=== PATIENT | male | born 1935 | race Caucasian/White ===

== ENCOUNTER → 2019-03-21 | Outpatient (CLI) | payer MEDICARE, OTHER ==
[~2019-03-21] MED LIST: ASCO500 PO; ASPI81CH PO; COREG PO; DOXA2 PO; EYE VITAMIN-MI1 EACH PO; FINA5 PO; Lisinopril2.5 MG PO; SIMV40 PO
== END ==
LOC: LAB SHORT 08:40 → PLD 08:40
DX: D04.72 Carcinoma in situ of skin of left lower limb, including hip (principal); D03.39 Melanoma in situ of other parts of face
CPT/HCPCS: 88305

== ENCOUNTER → 2019-04-18 | Outpatient (CLI) | payer MEDICARE, OTHER | END | disposition home or self-care (01) | LOC: PLD 14:23 → LAB SHORT 14:23 | DX: D03.39 Melanoma in situ of other parts of face (principal) | CPT/HCPCS: 88305 ==

== ENCOUNTER → 2019-06-06 | Outpatient (CLI) | payer MEDICARE, OTHER | END | disposition home or self-care (01) | LOC: PLD 15:09 → LAB SHORT 15:09 | DX: L57.8 Other skin changes due to chronic exposure to nonionizing radiation (principal) | CPT/HCPCS: 88305 ==

== ENCOUNTER → 2020-03-28 | Outpatient (CLI) | payer MEDICARE, OTHER | END | disposition home or self-care (01) | LOC: PLD 13:49 → LAB SHORT 13:49 | DX: B35.1 Tinea unguium (principal); L60.1 Onycholysis | CPT/HCPCS: 88305; 88312 ==

== ENCOUNTER → 2022-02-27 | Outpatient (CLI) | payer MEDICARE, OTHER | END | disposition home or self-care (01) | LOC: LAB SHORT 07:53 → PLD 07:53 | DX: L60.2 Onychogryphosis (principal); B35.1 Tinea unguium | CPT/HCPCS: 88305; 88312 ==

== ENCOUNTER → 2022-06-24 | Outpatient (CLI) | payer OTHER | END | disposition home or self-care (01) | LOC: LAB SHORT 12:39 → PLD 12:39 | DX: D48.5 Neoplasm of uncertain behavior of skin (principal) | CPT/HCPCS: 88305 ==

== ENCOUNTER 2024-03-10 14:59 | Inpatient (IN) | payer OTHER ==
[~2024-03-10] VITALS: Ht 177.8 cm; Wt 69.0 kg
[~2024-03-10 14:59] MED LIST changes: -COREG PO; +COREG12.5 M1 PO; +DOCU100 PO
[2024-03-10 15:37] LABS: BASOPHILS ABSOLUTE AUTO 0.03 K/mm3 (0.00-0.23); BASOPHILS PERCENT AUTO 1 % (0-2); EOSINOPHILS ABSOLUTE AUTO 0.17 K/mm3 (0.00-0.68); EOSINOPHILS PERCENT AUTO 3 % (0-6); Hemoglobin 9.9 g/dL (13.5-17.5); IMMATURE GRAN ABSOLUTE AUTO 0.01 K/mm3 (0.00-0.10); IMMATURE GRAN PERCENT AUTO 0 % (0-1); LYMPHOCYTES ABSOLUTE AUTO 0.93 K/mm3 (0.84-5.20); LYMPHOCYTES PERCENT AUTO 14 % (21-46); MONOCYTES ABSOLUTE AUTO 1.38 K/mm3 (0.16-1.47); MONOCYTES PERCENT AUTO 21 % (4-13); Mean Corpuscular Volume 97 fL (80-100); Mean Platelet Volume 11.5 fL (9.1-12.4); NEUTROPHILS ABSOLUTE AUTO 4.01 K/mm3 (1.96-9.15); NEUTROPHILS PERCENT AUTO 61 % (41-73); Platelet Count 104 K/mm3 (150-400); RDW Coefficient Variation 12.8 % (11.7-14.2); RDW Standard Deviation 45.8 fL (35.1-46.3); Red Blood Cell Count 3.09 M/mm3 (4.30-5.90); White Blood Cell Count 6.53 K/mm3 (4.00-11.30)
[2024-03-10 15:51] LABS: International Normalized Ratio 1.16; Prothrombin Time Results 12.3 Sec (9.7-11.5)
[2024-03-10 15:59] LABS: Albumin, Blood 3.2 g/dL (3.4-5.0); Albumin/Globulin Ratio 1.2 (0.8-1.8); Bilirubin, Total 0.7 mg/dL (0.1-1.0); Bun/Creatinine Ratio 20.9 (12.0-20.0); Calcium, Blood 8.7 mg/dL (8.5-10.1); Creatinine, Blood 0.91 mg/dL (0.60-1.20); Globulin, Blood 2.7 g/dL (2.2-4.0); Magnesium, Blood 2.2 mg/dL (1.6-2.4); Potassium, Blood 4.5 mmol/L (3.5-5.5); Total Protein, Blood 5.9 g/dL (6.4-8.2)
[2024-03-10 16:55] LABS: Influenza A, PCR NEGATIVE (NEGATIVE); Influenza B, PCR NEGATIVE (NEGATIVE); Resp Syncytial Virus, PCR NEGATIVE (NEGATIVE); SARS-Cov-2 (COVID-19) PCR, MMC NEGATIVE (NEGATIVE)
[2024-03-10] MEDS ORDERED: NS 1,000 ML IV SCH (17:40)
[2024-03-10] MEDS ORDERED: Metoprolol Tartrate 1 MG/ML 5 ML VIAL IV PRN (17:40)
[2024-03-10] MEDS ORDERED: FLU VACC TS2024-25(6MOS UP)/PF 45 MCG/0.5 ML SYRINGE IM SCH (17:40)
[2024-03-10] MEDS ORDERED: Ondansetron HCl 2 MG / ML 2ML Vial IV PRN (17:40)
[2024-03-10] MEDS ORDERED: Labetalol HCL 5 MG/ML 4ML Injection (Single Dose) IV PRN (17:45)
[2024-03-10] MEDS ORDERED: Aspirin 325 MG Tab PO ONE (18:00)
[2024-03-10 20:01] VITALS: BP 164/98
[2024-03-11 05:01] VITALS: BP 148/81
[2024-03-11 06:17] LABS: Anion Gap 10 mmol/L (3-11); Blood Urea Nitrogen 26 mg/dL (8-24); Bun/Creatinine Ratio 30.4 (12.0-20.0); CHOL/HDL RATIO 2.1; CO2, Blood 25 mmol/L (21-32); Chloride, Blood 110 mmol/L (98-108); Cholesterol 93 mg/dL (50-200); Creatinine, Blood 0.85 mg/dL (0.60-1.20); Glomerular Filtration Rate 83 (60-); Glucose, Blood 111 mg/dL (70-99); HDL Cholesterol 44 mg/dL (>39); LDL/HDL RATIO 0.8; Low Density Lipoprotein Chol 37 mg/dL (0-110); Magnesium, Blood 2.2 mg/dL (1.6-2.4); Potassium, Blood 4.2 mmol/L (3.5-5.5); Sodium, Blood 141 mmol/L (136-145); Triglycerides 60 mg/dL (30-160); Very Low Density Lipoprot Chol 12 mg/dL (6-32)
--- NOTE | 2024-03-11 06:34 | NUR ---
SHIFT SUMMARY PT IS POLITE AND RECEPTIVE TO CARE. PT HAS RIGHT SIDE DROOP FROM [facility].. PT HAS GRAND DAUGHTER AT SIDE FOR SUPPORT. PT CAN AMBULATE TO RESTROOM WITH 1 PERSON ASSIST. PT IS HAVING MRI TODAY AND SWALLOW EVAL. PT IS ON TELE AND AFIB RUNNING IN 80 S. PT STATED HE DID NOT SLEEP MUCH AT ALL THROUGH THE NIGHT. BED IN LOWEST POSITION, CALL LIGHT WITHIN REACH, RAILS TIMES 2.
[2024-03-11 07:38] VITALS: BP 149/81
[2024-03-11] MEDS ORDERED: Enoxaparin 40 MG/0.4 ML SYR SC SCH (09:00)
[2024-03-11] MEDS ORDERED: Finasteride 5 MG Tab PO SCH (09:00)
[2024-03-11] MEDS ORDERED: Atorvastatin 40 MG Tab PO SCH (09:00)
[2024-03-11] MEDS ORDERED: Clopidogrel Bisulfate 75 MG Tab PO SCH (16:00)
[2024-03-11] MEDS ORDERED: Aspirin 81 MG Chew PO SCH (16:00)
[2024-03-11 16:22] VITALS: BP 138/77
[2024-03-11] MEDS ORDERED: Carvedilol 6.25 MG Tab PO SCH (17:00)
--- NOTE | 2024-03-11 18:25 | NUR ---
SHIFT SUMMARY: PATIENT A/OX4, [place], SLIGHT DROOP TO R SIDE AND SLURRED SPEECH. PATIENT HAND LUMBER ESTIMATOR AND STRENGTH ARE EQUAL TO ALL EXTREMITIES. PATIENT HAS POOR R PERIPHERAL INSIGHT AND UNSTEADY c AMBULATION. PATIENT DENIES CP/PRESSURE, SOB, DIZINESS AND N/V. PATIENT ON TELE, AFIB HR IN THE 80'S BPM. PATIENT HAD PT/OT/ST RECOMMEDING SNF. PATIENT ON SOFT BITE SIZE DIET, MOD THICK LIQUIDS VIA SPOON, c MEALS SUPERVISION AND MEDS WHOLE IN APPLE SAUCE. PATIENT HAD MRI AND ECHO DONE TODAY c RESULT. PATIENT CONTINENT OF BLADDER, UP c 1 ASSIST/FWW TO BATHROOM, SHOWERED AND LINEN CHANGED TODAY. PATIENT RECEIVED SCHEDULED MEDS PER EMAR. VITAL SIGNS REVIEWED. BED ALARM ON FOR SAFETY. CALL LIGHT IN REACH.
[2024-03-11 19:56] VITALS: BP 140/86
[2024-03-12 03:20] VITALS: BP 169/80
--- NOTE | 2024-03-12 04:04 | NUR ---
SHIFT SUMMARY: CAYETANO IS A&OX4. VSS, NO ACUTE EVENTS OVERNIGHT. PT UP TO BEDSIDE CHAIR. HE IS A ONE-PERSON ASSIST WITH THE FWW AND GB TO THE BATHROOM, IS TOLERATING PO INTAKE WELL, AND IS CONTINENT OF BLADDER AND BOWEL. DAUGHTER AT BEDSIDE. PT HAS USED THE CALL LIGHT APPROPRIATELY THIS SHIFT, BED ALARM ON FOR SAFETY, AND HE HAS DENIED PAIN. HE IS SITTING UP IN THE BEDSIDE CHAIR WITH THE CALL LIGHT IN REACH. WILL GIVE REPORT TO DAY SHIFT RN.
[2024-03-12 07:19] VITALS: BP 169/97
[2024-03-12 08:30] VITALS: BP 108/90
[2024-03-12] MEDS ORDERED: Lisinopril 5 MG Tab PO SCH (09:00)
[2024-03-12 16:17] VITALS: BP 137/65
[2024-03-12 16:48] VITALS: BP 150/88
--- NOTE | 2024-03-12 18:31 | NUR ---
SHIFT SUMMARY: PATIENT HAS NO NEW ACUTE CHANGES THIS SHIFT. PATIENT A/OX4, [place], STILL HAS SLIGHTLY SLURRED SPEECH. PATIENT DENIES CP/PRESSURE, N/V, DIZZINESS AND SOB. PATIENT HAS HAD NO EVENTS ON TELE, AFIB HR IN THE HIGH 60'S BPM. PATIENT SAT UP IN THE CHAIR FOR ABOUT SIX HRS THIS SHIFT. PATIENT HAS GREAT APPETITE, NO ISSUES SWALLOWING/DRINKING c CURRENT TEXTURE DIET AND MOD THICKENED LIQUID. PATIENT FAMILY IN ROOM ON/OFF T/O SHIFT. VITAL SIGNS REVIEWED. PATIENT RECEIVED SCHEDULED MEDS PER EMAR. BED/CHAIR ALARM ON FOR SAFETY. CALL LIGHT IN REACH.
[2024-03-12 19:32] VITALS: BP 144/81
[2024-03-13 04:05] VITALS: BP 160/100
[2024-03-13 04:11] VITALS: BP 162/82
--- NOTE | 2024-03-13 04:21 | NUR ---
SHIFT SUMMARY: CAYETANO IS A&OX4. VSS, BP INCREASED THIS AM CONSISTENT WITH TREND. HE IS A ONE-PERSON ASSIST TO THE BATHROOM WITH THE FWW AND GB. HE IS TOLERATING PO INTAKE WELL, REPORTS THE MODIFIED SILVERWARE HAS BEEN WORKING WELL TO ENABLE PT TO FEED HIMSELF. HE IS CONTINENT OF BLADDER AND BOWEL, USES THE CALL LIGHT APPROPRIATELY, AND IS NOT IMPULSIVE. IV TO R AC PATENT. PT ASSISTED TO SHOWER THIS SHIFT. NO EVENTS ON TELEMETRY. HE IS LYING IN BED WITH THE CALL LIGHT IN REACH, BED IN LOWEST POSITION. WILL GIVE REPORT TO DAY SHIFT RN.
[2024-03-13 05:49] LABS: Bun/Creatinine Ratio 25.2 (12.0-20.0); Creatinine, Blood 0.75 mg/dL (0.60-1.20)
[2024-03-13 07:28] VITALS: BP 152/97
[2024-03-13 15:30] VITALS: BP 127/73
[2024-03-13 17:19] VITALS: BP 153/97
--- NOTE | 2024-03-13 18:16 | NUR ---
SHIFT SUMMARY: PATIENT A/OX4, PLEASANT AND COOPERATIVE c CARE. PATIENT STILL HAS SLIGHTLY SLURRED IN SPEECH. PATIENT DENIES CP/PRESSURE, SOB, N/V AND DIZZINESS. PATIENT HAS HAD NO EVENT ON TELE, AFIB HR IN THE HIGH 70'S BPM. PATIENT HAS GREAT APPETITE, TOLERATING CURRENT DIET AND MOD THICKENED LIQUID. PATIENT CONTINENT OF BOWEL/BLADDER, AMBULATES TO BATHROOM c SBA/FWW. PATIENT AMBULATED IN HALLWAY X1 c DAUGHTER'S SUPERVISION, DID WELL. PATIENT SAT UP IN CHAIR ON/OFF T/O SHIFT. PATIENT RECEIVED SCHEDULED MEDS PER EMAR. VITAL SIGNS REVIEWED. CALL LIGHT IN REACH. PATIENT DAUGHTER AT BEDSIDE T/O SHIFT AND WILL STAYED OVERNIGHT c THE PATIENT.
[2024-03-13 19:40] VITALS: BP 127/79
--- NOTE | 2024-03-14 04:33 | NUR ---
NOC SUMMARY- NO NEW ISSUES. PT FAMILY STAYED THE NIGHT WITH PT. PT ABLE TO MAKE NEEDS KNOWN. PT HAS BEEN RESTING COMFORTABLY THROUGHOUT SHIFT. CALL LIGHT IN REACH.
--- NOTE | 2024-03-14 04:35 | NUR ---
0430- NO TELE EVENTS REPORTED FROM [email or web address] THIS SHIFT.
[2024-03-14 04:46] VITALS: BP 168/99
[2024-03-14 07:05] VITALS: BP 169/93
[2024-03-14] MEDS ORDERED: Lisinopril 5 MG Tab PO SCH (09:00)
[2024-03-14 15:21] VITALS: BP 101/61
[2024-03-14] MEDS ORDERED: LISI5 PO (18:17)
[2024-03-14] MEDS ORDERED: CLOP75 PO (18:18)
[2024-03-14] MEDS ORDERED: ATOR80 PO (18:18)
== END 2024-03-14 18:41 | disposition home or self-care (01) | DRG 65 ==
LOC: ER 14:59 → MEDS 17:35 → EDBEDREQ 18:25 → MEDS 18:57 → ENPENDDIS 03-14 17:47 → MEDS 03-14 18:41
PROVIDERS: Internal Medicine; Nurse Practitioner Acute Care; Student in an Organized Health Care Education/Training Program; ADMIT Student in an Organized Health Care Education/Training Program
DX: I63.512 Cerebral infarction due to unspecified occlusion or stenosis of left middle cerebral artery (principal); G81.91 Hemiplegia, unspecified affecting right dominant side; I48.20 Chronic atrial fibrillation, unspecified; Z60.2 Problems related to living alone; I10 Essential (primary) hypertension; E78.5 Hyperlipidemia, unspecified; N40.0 Benign prostatic hyperplasia without lower urinary tract symptoms; R47.81 Slurred speech; R29.810 Facial weakness; I25.10 Atherosclerotic heart disease of native coronary artery without angina pectoris; R29.702 NIHSS score 2; R47.1 Dysarthria and anarthria; E87.8 Other disorders of electrolyte and fluid balance, not elsewhere classified; H91.90 Unspecified hearing loss, unspecified ear; R13.12 Dysphagia, oropharyngeal phase; D64.9 Anemia, unspecified; E88.09 Other disorders of plasma-protein metabolism, not elsewhere classified; Z95.5 Presence of coronary angioplasty implant and graft; Z88.0 Allergy status to penicillin; Z88.7 Allergy status to serum and vaccine; Z90.49 Acquired absence of other specified parts of digestive tract; Z98.890 Other specified postprocedural states; Z79.899 Other long term (current) drug therapy
CPT/HCPCS: 0241U; 36415; 70450; 70496; 70498; 70551; 71045; 74230; 80048; 80053; 80061; 83036; 83735; 83880; 84484; 85025; 85610; 85730; 92526; 92610; 92611; 93005; 93010; 93306; 97110; 97116; 97162; 97165; 97530; 97535; 99285-25; A9270; J1650; Q9967